=== PATIENT | female | born 1960 | race Caucasian/White ===

== ENCOUNTER 2020-12-14 11:30 | Outpatient (RCR) | payer OTHER, SELFPAY | END 2020-12-17 23:59 | disposition home or self-care (01) | LOC: SPT 11:30 | PROVIDERS: Referring Provider Nurse Practitioner Family; Visit Provider Nurse Practitioner Family | DX: M25.562 Pain in left knee (principal) | CPT/HCPCS: 97760; L1812 ==

== ENCOUNTER → 2024-04-01 07:42 | Outpatient (BNVA) | payer BC, SELFPAY | PROVIDERS: PCP Nurse Practitioner Family; Visit Provider Podiatrist Foot & Ankle Surgery | DX: M19.072 Primary osteoarthritis, left ankle and foot (principal); Z01.818 Encounter for other preprocedural examination | CPT/HCPCS: 73630 ==

== ENCOUNTER 2024-05-01 06:16 | Day surgery (SDC) | payer BC, SELFPAY ==
[2024-05-01] VITALS (9 sets, daily range): BP systolic 122–151; BP diastolic 72–91; PULSE 62–77; RESP 16–18; TEMP 36.2–36.6; O2SAT 97–100; BMI 30.7
--- NOTE | 2024-05-01 | XR_ITS ---
WS: [id number] Left foot, C-arm fluoroscopy V views, 05/01/2024 Clinical Data: KOMAL PICS Comparison: Left foot, 04/01/2024 Findings: Dr. Sahni inserted orthopedic screws and an orthopedic plate into the tarsal navicular bone. XR/XR foot LT min 3V* [id number] Impression: Surgical changes of the left tarsal navicular.
[2024-05-01] MEDS: gabapentin 300 mg Capsule PO (06:51)
[2024-05-01] MEDS: sodium chloride 0.9% 1,000 ML 30 ML IV (06:51)
[2024-05-01] MEDS: CELEcoxib 200 mg Capsule 400 MG PO (06:51)
--- NOTE | 2024-05-01 07:30 | ANES.PREANE2 ---
Pre-Anesthetic Assessment Height/Weight: Height 1.8 m Weight 99.79 kg Temp Pulse Resp BP Pulse Ox O2 Del Method 97.4 F L 62 18 123/81 99 Room Air 05/01/24 06:34 05/01/24 06:34 05/01/24 06:34 05/01/24 06:34 05/01/24 06:34 05/01/24 06:34 Preop Diagnosis: Left midfoot arthritis Operation Date: 05/01/24 08:05 Proposed Procedures p Talonavicular Joint Fusion(Left) - Diallo Sahni DPM s Calcaneal autograft left foot(Left) - Diallo Sahni DPM Familial anesthetic complications: None Was Beta Jorge taken within 24 hours: N/A Was Clonidine taken within 24 hours: N/A Last intake: Intake Last Liquid Date 04/30/24 Last Liquid Time 18:00 Last Solid Date 04/30/24 Last Solid Time 20:00 Social No alcohol and No tobacco Exam alert, oriented x 3, clear to auscultation bilaterally and regular rate & rhythm Airway Mallampati: Class II Dentition: full Anesthetic Plan ASA status: 1 Anesthesia: General and Regional (specify below) Risk of > 500 ml blood loss (7ml/kg in children): No Medications/Allergies Home Medications Medication Instructions Recorded Confirmed Last Taken Type hydrocodone 10 mg-acetaminophen 1 tab PO Q6H PRN pain 7 days #28 05/01/24 Unknown Rx 325 mg tablet tabs Allergies Allergy/AdvReac Type Severity Reaction Status Date / Time No Known Allergies Allergy Verified 05/01/24 06:29 Current Medications Generic Name Dose Route Start Last Admin Trade Name Freq PRN Reason Stop Dose Admin Sodium Chloride 1,000 mls @ 30 mls/hr 05/01/24 06:30 05/01/24 06:51 Sodium Chloride 0.9% IV 05/02/24 06:29 30 mls/hr .Q24H TATO Administration PFSH Anesthesia Medical History Hx of fracture of tibia Social History Smoking and tobacco/nicotine status: never used tobacco/nicotine Data Anesthesia Cardiac Studies: No Data to Display
--- NOTE | 2024-05-01 07:30 | ANES.PROC ---
Anesthesia Procedures Procedure/Date: 05/01/24 Nerve Block ^: Nerve Block 1: Main Anesthesia: general anesthesia Time Out Performed: Yes Consent: requested by attending/covering physician, from patient, from other, risks and benefits reviewed and patient agrees to proceed Nerve block location: popliteal (L) Anesthesia monitors applied: pulse oximetry, EKG, BP cuff and oxygen Nerve block position: supine Anesthetic Used: ropivicaine 0.5% (30 ml) and with decadron (4 mg) Ultrasound used to: recognize landmarks Nerve Stimulator Used?: No Interscalene/Femoral BLK: 4 stimuplex 21 g needle used for position and inplane approach, visualize local anesthetic spread and no vascular puncture identified Injection: neg aspiration of heme Patient Tolerated Procedure: well Complications: none
--- NOTE | 2024-05-01 07:53 | W.PM.OPSUD ---
Surgery/Procedure H&P Update DATE OF PROCEDURE: May 01, 2024 DATE H&P PERFORMED: 04/01/24 H&P UPDATE INFORMATION: I have reviewed H&P completed within last 30 days, I have examined patient prior to procedure, No changes to prior documentation and H&P is in [facility] [place] on date indicated PREOP DIAGNOSIS: Left midfoot arthritis PLANNED PROCEDURE: Operation Date: 05/01/24 08:05 Proposed Procedures p Talonavicular Joint Fusion(Left) - Diallo Sahni DPM s Calcaneal autograft left foot(Left) - Diallo Sahni DPM
--- NOTE | 2024-05-01 07:58 | PM.OP ---
Operative Report Date of procedure: May 01, 2024 Pre-op diagnosis: Arthritis of left midfoot M19.072 Post-op diagnosis: Arthritis of left midfoot M19.072 Post-op findings: Arthrosis of the left talonavicular joint with osteophytes loose dorsally and dorsal bossing and loss of cartilage. Procedure done: Left talonavicular joint fusion. CPT code 11234 Implants: [place] locking dog bone plate with 3.5 mm locking screws x 4 and [place] 4.0 mm headed fully threaded cannulated screw x 2 Specimens removed/disposition: None Pathology: None Surgeon: Diallo Sahni DPM Toll Relief Operator: Hailey Estimated blood loss: 15 89 IV fluids: See intraoperative documentation Urine output: None Complications: No complications Findings: Arthrosis of the left talonavicular joint with osteophytes loose dorsally and dorsal bossing and loss of cartilage. Brief History: 63-year-old female with a history of plantar fasciitis and arthritis of the talonavicular joint, presenting with burning pain in the arch of her foot, suggestive of exacerbation of plantar fasciitis and significant degenerative changes in the talonavicular joint. 1. Arthritis Of The Talonavicular Joint Plan surgical intervention, including arthrodesis of the talonavicular joint and removal of associated bone spurs. Pre-operative preparations include confirmation of surgical dates, ensuring the patient is cleared medically, and addressing potential post-operative complications such as delayed union due to lower blood supply. 2. Other shoulder lesions, unspecified shoulder M75.80 Surgical removal of bone spurs to alleviate pain and improve joint function. Ensure patient understanding of the surgical procedure, risks, benefits, and alternative treatments. 3. Plantar Fasciitis Continue with conservative management of plantar fasciitis, considering symptom location and distribution. Ensure regular follow-up and assess the response to conservative measures including use of anti-inflammatory medications and physical therapy as indicated. - Follow pre-operative guidelines, including no consumption of food or drink after midnight prior to surgery. - Arrange for transportation post-surgery due to sedation. - Continue supplementation with Vitamin D, Calcium, and Vitamin C to support bone health and healing. - Attend all scheduled follow-up appointments and post-operative assessments. - Avoid weight-bearing activities on the affected foot until adequately healed. I reviewed at length with the patient, the risks, potential complications, benefits, alternatives, expectations, and typical outcomes associated with the surgery. The risks and potential complications were explained in detail, including but not limited to infection, wound dehiscence or soft tissue complications, bleeding and hematoma, chronic edema, neuritis or nerve damage producing numbness or chronic pain, CRPS, failure to relieve pain or worsening pain, thick / painful / unsightly scar, limited motion / stiffness, malposition, delayed union, malunion, or nonunion, fracture, reaction to implants, anesthetic complications, venous thromboembolism, and deformity recurrence. I discussed the notion of no regrets with the patient as it pertains to complications and outcomes. The patient seemed to understand the nature of the proposed care and required convalescence. They asked appropriate questions, answered to their satisfaction. They are aware no guarantees can be made as to a satisfactory outcome and they understand there may be other possible unforeseen complications or outcomes not listed here that will be treated accordingly if they arise. There were no written or implied guarantees given to the patient. They gave informed consent to proceed. Procedure: Under mild sedation the patient was brought to the operating room and placed onto the operating table in supine position. A timeout was performed. Anesthesia was then administered by the anesthesia service. Of note left popliteal block was performed preoperatively per anesthesia service. Well-padded pneumatic tourniquet was applied to the left ankle. The left lower extremity was scrubbed, prepped and draped utilizing normal aseptic technique. Left foot and ankle were then exanguinated with an Esmarch bandage and tourniquet inflated to 250 mmHg. Attention was directed to the medial aspect and dorsal aspect of the left talonavicular joint where impressive osseous bossing was appreciated and able to be visualized tenting the skin dorsally at the left midfoot. Dual incision was performed with the incision performed medially at the navicular tuberosity and laterally just lateral to the peroneal tertius through skin with a #15 blade. Dissection carried down through subcutaneous tissue to the layer periosteum utilizing a combination of sharp and blunt technique and both incisions with care taken to retract and preserve neurovascular and tendinous structures. All bleeders were ligated and cauterized as necessary. Periosteal incision was performed with a fresh deep 15 blade and the talonavicular joint was freed from its soft tissue and capsular attachments all dorsal osteophytes were removed and contoured back to normal anatomy able to visualize the head of the talus and proximal articular surface of the navicular noted to be worn with eburnation and islands of osteochondral defects with complete cartilage loss. The talonavicular joint was prepped for arthrodesis utilizing curettage, bone resurfacing total followed by fenestrating drill bit and fish scaling with osteotome. Holding the left midfoot in neutral position and proper alignment 4 mm [place] crossing screws oriented from proximal medial coursing distal lateral with the for screw and then oriented distal medial to proximal lateral on the second screw these were crossing screws with excellent bony apposition and compression noted followed by additional [place] dog bone plate with 3.5 mm locking screws dorsal medial aspect of the arthrodesis site with excellent bony apposition and compression noted. All loose voids packed with demineralized bone matrix provided by [place] 28. The incisions were irrigated with skin solution and closed in a layered fashion with capsule reapproximated with 3-0 Vicryl, subcutaneous tissue with 4-0 Vicryl and skin with 4-0 nylon. Incisions were then dressed with Adaptic, sterile 4 x 4's, Kerlix and Dave wrap followed by application of well-padded multilayer compressive posterior splint with foot and ankle in neutral position. Tourniquet was deflated and prompt hyperemic response is noted to the distal digits of the left foot. Patient tolerated the procedure and anesthesia well and was transferred to the PACU with vital signs stable and vascular status intact. Following a period of postoperative monitoring patient will be discharged home without home care instructions and scheduled follow-up as well as myself number to contact me with any postoperative questions or concerns.
[2024-05-01] MEDS: ceFAZolin 2,000 mg SDV 2000 MG IVP (08:11)
--- NOTE | 2024-05-01 12:05 | ANE.PACU2 ---
Inpatient post-anesthesia follow up: Airway intact: Yes Vital signs: Temperature 97.8 F Pulse Rate 65 Respiratory Rate 16 Blood Pressure 151/80 Pulse Oximetry 97 Oxygen Delivery Me thod Room Air Oxygen Flow Rate Fraction of Inspir ed Oxygen Hydration adequate: Yes Nausea and vomiting: No Pain level: 1 Mental status: Baseline
--- NOTE | 2024-05-01 13:32 | P.BOP_ITS ---
Date of Procedure: 08/02/23 Surgeon: Diallo Sahni DPM Corporate Specialist(s): Hailey Procedure(s) performed: Left midfoot fusion Findings of the procedure(s): None Estimated blood loss: 15 mL Specimen(s) removed: None Post-operative diagnosis: Left midfoot arthritis
== END 2024-05-01 12:11 | disposition home or self-care (01) ==
PROVIDERS: PCP Nurse Practitioner Family; Visit Provider Podiatrist Foot & Ankle Surgery
PROC: (CPT 28740; principal; 2024-05-01 07:55)
DX: M19.072 Primary osteoarthritis, left ankle and foot (principal)
CPT/HCPCS: 28740; 73630; 76000; C1713; J0690; J1100; J2405; J2704; J2795; J3010; J7030

== ENCOUNTER → 2024-05-15 10:45 | Outpatient (BNVA) | payer BC, SELFPAY | PROVIDERS: PCP Nurse Practitioner Family; Visit Provider Podiatrist Foot & Ankle Surgery | DX: Z98.890 Other specified postprocedural states (principal) | CPT/HCPCS: 73630 ==

== ENCOUNTER 2024-05-15 11:34 | Outpatient (CLI) | payer BC, SELFPAY | END 2024-05-15 11:35 | disposition home or self-care (01) | LOC: SPT 11:34 | PROVIDERS: PCP Nurse Practitioner Family; Visit Provider Podiatrist Foot & Ankle Surgery | DX: Z47.89 Encounter for other orthopedic aftercare (principal) | CPT/HCPCS: L4361 ==

== ENCOUNTER → 2024-06-11 13:02 | Outpatient (BNVA) | payer BC, SELFPAY | PROVIDERS: PCP Nurse Practitioner Family; Visit Provider Podiatrist Foot & Ankle Surgery | DX: Z98.890 Other specified postprocedural states (principal) | CPT/HCPCS: 73630 ==

== ENCOUNTER → 2024-07-09 13:03 | Outpatient (BNVA) | payer BC, SELFPAY | PROVIDERS: PCP Nurse Practitioner Family; Visit Provider Podiatrist Foot & Ankle Surgery | DX: Z98.890 Other specified postprocedural states (principal); M76.62 Achilles tendinitis, left leg | CPT/HCPCS: 73630 ==

== ENCOUNTER → 2024-08-06 13:39 | Outpatient (BNVA) | payer BC, SELFPAY | PROVIDERS: PCP Nurse Practitioner Family; Visit Provider Podiatrist Foot & Ankle Surgery | DX: Z98.890 Other specified postprocedural states (principal); M76.62 Achilles tendinitis, left leg | CPT/HCPCS: 73630 ==